=== PATIENT | male | born 1995 | race Caucasian/White ===

== ENCOUNTER → 2016-05-15 | Outpatient (CLI) | payer OTHER ==
--- NOTE | 2016-05-15 13:15 | DIAGNOSTIC IMAGING REPORT ---
CT SCAN OF THE ABDOMEN AND PELVIS WITHOUT IV CONTRAST CLINICAL HISTORY: Hematuria. COMPARISON STUDY: No priors. TECHNIQUE: CT scan of the abdomen and pelvis is performed from the lung bases to the proximal femora. Images are reviewed in the axial, sagittal, and coronal planes. IV contrast was not administered for this examination. Automated dose control exposure was utilized. CT DOSE: 942.00 mGycm FINDINGS: Lung bases: The heart is normal in size and without pericardial effusion. The lung bases are clear. Liver: The unenhanced liver is top normal in size measuring 18 cm in length. The liver demonstrates diffusely diminished attenuation consistent with hepatic steatosis. Fatty sparing is seen adjacent to the gallbladder fossa. There is no intrahepatic biliary ductal dilatation. Gallbladder: Unremarkable. Spleen: Normal in size and attenuation. Pancreas: Unremarkable. Adrenal glands: Unremarkable. Kidneys: The unenhanced kidneys are normal in size and without hydronephrosis. There are 2 mm and 8 mm nonobstructing calculi in the lower pole of the right kidney. There are 2 nonobstructing left renal calculi measuring up to 3 mm. There is no evidence of contour deforming renal mass lesion. Abdominal vasculature: The abdominal aorta is normal in course and caliber. Bowel: The small bowel and colon are normal in course and caliber. The appendix is not identified and reported surgically absent. Peritoneum: There is no intraperitoneal free air or abdominal ascites. Lymphadenopathy: None. Pelvic viscera: The bladder, prostate, and seminal vesicles are normal as visualized. Skeletal structures: No lytic or blastic lesions are seen. A bone island is incidentally noted in the right sacral ala. IMPRESSION: 1. There are bilateral nonobstructing renal calculi as above. 2. No ureteral calculus or hydronephrosis is seen. 3. Hepatomegaly and hepatic steatosis. 4. Additional findings as above. Electronically signed by: Justen Tellez M.D. 05/15/2016 1:14 PM Dictated Date/Time: 05/15/2016 1:09 PM
== END | disposition home or self-care (01) ==
LOC: C.CTS 12:54
PROVIDERS: ATTEND Pediatrics
DX: R31.29 Other microscopic hematuria (principal); N20.0 Calculus of kidney; R16.0 Hepatomegaly, not elsewhere classified; K76.0 Fatty (change of) liver, not elsewhere classified

== ENCOUNTER 2017-12-06 06:23 | Emergency (ER) | payer OTHER ==
[~2017-12-06] VITALS: Ht 175.3 cm; Wt 84.1 kg
[2017-12-06 06:27] VITALS: TEMP 36.5; Ht 175.3 cm; Wt 84.1 kg
[2017-12-06] MEDS ORDERED: KETOROLAC TROMETHAMINE 30 MG/ML VIAL IV STA (06:37)
[2017-12-06] MEDS ORDERED: SODIUM CHLORIDE 0.9% 1000ML 1,000 ML IV STA (06:37)
[2017-12-06 06:48] LABS: BASO % 0.4 %; BASO ABS # 0.05 K/uL (0-0.2); EOS % 2.7 %; EOS ABS # 0.37 K/uL (0-0.5); HEMATOCRIT 45.9 % (42-52); IG# 0.03 K/uL (0.00-0.02); LYMPH % 32.5 %; LYMPH ABS # 4.43 K/uL (1.2-3.4); MEAN CELL VOLUME 83.9 fL (80-100); MEAN CORPUSCULAR HEMOGLOBIN 29.3 pg (25-34); MEAN CORPUSCULAR HGB CONC 34.9 g/dl (32-36); MEAN PLATELET VOLUME 10.4 fL (7.4-10.4); MONO % 7.6 %; MONO ABS # 1.03 K/uL (0.11-0.59); NEUT % 56.6 %; NEUT ABS # 7.72 K/uL (1.4-6.5); PLATELET COUNT 349 K/uL (130-400); RED CELL DISTRIBUTION WIDTH CV 13.4 % (11.5-14.5); RED CELL DISTRIBUTION WIDTH SD 41.3 fL (36.4-46.3); WHITE BLOOD COUNT 13.63 K/uL (4.8-10.8)
[2017-12-06 07:05] LABS: CALCIUM 8.8 mg/dl (8.5-10.1); CREATININE 1.1 mg/dl (0.60-1.40); POTASSIUM 3.6 mmol/L (3.5-5.1); TOTAL PROTEIN 8.1 gm/dl (6.4-8.2)
--- NOTE | 2017-12-06 07:30 | DIAGNOSTIC IMAGING REPORT ---
ABD/PELVIS WITHOUT FOR STONE HISTORY: 22 years-old Male flank pain acute left-sided flank pain COMPARISON: CT abdomen and pelvis 05/15/2016 TECHNIQUE: Multiple axial CT images of the abdomen and pelvis were obtained without the use of IV contrast. A dose lowering technique was used consistent with the principals of BARAK. FINDINGS: Imaged lung bases appear clear and are unremarkable. There is no pneumatosis or pneumoperitoneum identified. Imaged inferior cardiac chambers are unremarkable. Hepatomegaly with hepatic steatosis. No intrahepatic biliary ductal dilation. Mildly contracted gallbladder. Spleen, pancreas and adrenal glands are unremarkable. 4 mm nonobstructing calculus about the interpolar left kidney. Ill-defined increased density about an inferior pole calyx of the right measures up to 9 mm with additional ill-defined increased density seen about the interpolar collecting system on image 162 series 3. Moderate right-sided hydroureteronephrosis with right-sided ureteral stent appearing to be in satisfactory positioning. There is an 8 x 5 x 11 mm calculus of the distal right ureter seen on image 369 series 3. This is present approximately 2.5 cm proximal to the ureterovesicular junction. Reactive perinephric and periureteral inflammatory stranding. Mild urothelial thickening about the renal pelvis and UPJ on the right. Bladder and prostate are unremarkable. Aorta and IVC are within normal limits. Mildly prominent likely reactive periaortic lymph nodes measure up to 6 mm in short axis. No bowel obstruction or focal bowel wall thickening. Terminal ileum appears unremarkable. Surgically absent appendix. Soft tissues are within normal limits. The bones appear intact. IMPRESSION: 1. Moderate right-sided hydroureteronephrosis secondary to an 8 x 5 x 11 mm calculus of the distal right ureter, 2.5 cm proximal to the ureterovesicular junction. Satisfactory positioning of the right ureteral stent. 2. Ill-defined areas of increased density about the collecting system on the right is indeterminate and may reflect blood products. Correlate with urinalysis. 3. Hepatomegaly with hepatic steatosis. 4. Nonobstructing left nephrolithiasis. 5. Prior appendectomy. The above report was generated using voice recognition software. It may contain grammatical, syntax or spelling errors. Electronically signed by: Daryl Singletary M.D. 12/06/2017 7:29 AM Dictated Date/Time: 12/06/2017 7:17 AM
[2017-12-06] MEDS ORDERED: ONDANSETRON INJ 2 MG/ML 2 ML VIAL IV STA (08:07)
--- NOTE | 2017-12-06 08:14 | EMERGENCY ROOM VISIT NOTE ---
History Report prepared by Didieribsophia: Cathleen Mauricio Under the Supervision of: Dr. Lan Zaman D.O. First contact with patient: 06:31 Chief Complaint: KIDNEY STONE Stated Complaint: PAIN IN RIGH KIDNEY.CONSTANT BLOOD,STENT PLACED 2W History of Present Illness The patient is a 22 year old male who presents to the Emergency Room with complaints of constant R kidney pain beginning this morning. He reports he has blood in his urine and is dizzy. The patient had a stent placed 2 weeks ago for a 10 mm kidney stone. He states the stent is still in place, and his stone was not removed due to a kidney infection. The patient reports he was given antibiotics which he is unsure the name of, and is looking for a urologist in the area as his stent was placed in [place]. The patient denies any fevers or nausea. Source of History: patient Onset: this morning Position: other (R kidney) Quality: other (kidney pain) Timing: constant Associated Symptoms: + urinary symptoms (blood in urine), No fevers, No nausea Note: Associated symptom: dizziness Review of Systems See HPI for pertinent positives & negatives. A total of 10 systems reviewed and were otherwise negative. Past Medical & Surgical Medical Problems: (1) Kidney stone Family History No pertinent family history stated. Social History Smoking Status: Never Smoker Occupation Status: [employer] student Current/Historical Medications No Active Prescriptions or Reported Meds Allergies Coded Allergies: No Known Allergies (Unverified , 12/06/17) Physical Exam Vital Signs Date Time Temp Pulse Resp B/P (MAP) Pulse Ox O2 Delivery O2 Flow Rate FiO2 12/06/17 06:27 36.5 88 18 142/103 95 Room Air Physical Exam CONSTITUTIONAL/VITAL SIGNS: Reviewed / noted above. GENERAL: Non-toxic in appearance. INTEGUMENTARY: Warm, dry, and [place]. HEAD: Normocephalic. EYES: without scleral icterus or trauma. ENT/OROPHARYNX: clear and moist. LYMPHADENOPATHY/NECK: Is supple without lymphadenopathy or meningismus. RESPIRATORY: Lungs clear and equal. CARDIOVASCULAR: Regular rate and rhythm. GI/ABDOMEN: Soft and nontender. No organomegaly or pulsatile mass. No rebound or guarding. Normal bowel sounds. EXTREMITIES: Warm and well perfused. BACK: No CVA tenderness. NEUROLOGICAL: Intact without focal deficits. PSYCHIATRIC: normal affect. MUSCULOSKELETAL: Normally developed with good muscle tone. Medical Decision & Procedures ER Provider Diagnostic Interpretation: Radiology results as stated below per my review and radiologist interpretation: ABD/PELVIS WITHOUT FOR STONE HISTORY: 22 years-old Male flank pain acute left-sided flank pain COMPARISON: CT abdomen and pelvis 05/15/2016 TECHNIQUE: Multiple axial CT images of the abdomen and pelvis were obtained without the use of IV contrast. A dose lowering technique was used consistent with the principals of BARAK. FINDINGS: Imaged lung bases appear clear and are unremarkable. There is no pneumatosis or pneumoperitoneum identified. Imaged inferior cardiac chambers are unremarkable. Hepatomegaly with hepatic steatosis. No intrahepatic biliary ductal dilation. Mildly contracted gallbladder. Spleen, pancreas and adrenal glands are unremarkable. 4 mm nonobstructing calculus about the interpolar left kidney. Ill-defined increased density about an inferior pole calyx of the right measures up to 9 mm with additional ill-defined increased density seen about the interpolar collecting system on image 162 series 3. Moderate right-sided hydroureteronephrosis with right-sided ureteral stent appearing to be in satisfactory positioning. There is an 8 x 5 x 11 mm calculus of the distal right ureter seen on image 369 series 3. This is present approximately 2.5 cm proximal to the ureterovesicular junction. Reactive perinephric and periureteral inflammatory stranding. Mild urothelial thickening about the renal pelvis and UPJ on the right. Bladder and prostate are unremarkable. Aorta and IVC are within normal limits. Mildly prominent likely reactive periaortic lymph nodes measure up to 6 mm in short axis. No bowel obstruction or focal bowel wall thickening. Terminal ileum appears unremarkable. Surgically absent appendix. Soft tissues are within normal limits. The bones appear intact. IMPRESSION: 1. Moderate right-sided hydroureteronephrosis secondary to an 8 x 5 x 11 mm calculus of the distal right ureter, 2.5 cm proximal to the ureterovesicular junction. Satisfactory positioning of the right ureteral stent. 2. Ill-defined areas of increased density about the collecting system on the right is indeterminate and may reflect blood products. Correlate with urinalysis. 3. Hepatomegaly with hepatic steatosis. 4. Nonobstructing left nephrolithiasis. 5. Prior appendectomy. The above report was generated using voice recognition software. It may contain grammatical, syntax or spelling errors. Electronically signed by: Daryl Singletary M.D. 12/06/2017 7:29 AM Dictated Date/Time: 12/06/2017 7:17 AM Laboratory Results 12/06/17 06:40 Red Blood Count 5.47, Mean Corpuscular Volume 83.9, Mean Corpuscular Hemoglobin 29.3, Mean Corpuscular Hemoglobin Concent 34.9, Mean Platelet Volume 10.4, Neutrophils (%) (Auto) 56.6, Lymphocytes (%) (Auto) 32.5, Monocytes (%) (Auto) 7.6, Eosinophils (%) (Auto) 2.7, Basophils (%) (Auto) 0.4, Neutrophils # (Auto) 7.72, Lymphocytes # (Auto) 4.43, Monocytes # (Auto) 1.03, Eosinophils # (Auto) 0.37, Basophils # (Auto) 0.05 12/06/17 06:40 Test 12/06/17 06:40 12/06/17 06:52 White Blood Count 13.63 K/uL (4.8-10.8) Red Blood Count 5.47 M/uL (4.7-6.1) Hemoglobin 16.0 g/dL (14.0-18.0) Hematocrit 45.9 % (42-52) Mean Corpuscular Volume 83.9 fL (80-100) Mean Corpuscular Hemoglobin 29.3 pg (25-34) Mean Corpuscular Hemoglobin Concent 34.9 g/dl (32-36) Platelet Count 349 K/uL (130-400) Mean Platelet Volume 10.4 fL (7.4-10.4) Neutrophils (%) (Auto) 56.6 % Lymphocytes (%) (Auto) 32.5 % Monocytes (%) (Auto) 7.6 % Eosinophils (%) (Auto) 2.7 % Basophils (%) (Auto) 0.4 % Neutrophils # (Auto) 7.72 K/uL (1.4-6.5) Lymphocytes # (Auto) 4.43 K/uL (1.2-3.4) Monocytes # (Auto) 1.03 K/uL (0.11-0.59) Eosinophils # (Auto) 0.37 K/uL (0-0.5) Basophils # (Auto) 0.05 K/uL (0-0.2) RDW Standard Deviation 41.3 fL (36.4-46.3) RDW Coefficient of Variation 13.4 % (11.5-14.5) Immature Granulocyte % (Auto) 0.2 % Immature Granulocyte # (Auto) 0.03 K/uL (0.00-0.02) Anion Gap 10.0 mmol/L (3-11) Est Creatinine Clear Calc Drug Dose 105.4 ml/min Estimated GFR () 109.9 Estimated GFR (Non- 94.8 BUN/Creatinine Ratio 12.3 (10-20) Calcium Level 8.8 mg/dl (8.5-10.1) Total Bilirubin 1.0 mg/dl (0.2-1) Direct Bilirubin 0.2 mg/dl (0-0.2) Aspartate Amino Transf (AST/SGOT) 23 U/L (15-37) Alanine Aminotransferase (ALT/SGPT) 44 U/L (12-78) Alkaline Phosphatase 53 U/L (45-117) Total Protein 8.1 gm/dl (6.4-8.2) Albumin 4.0 gm/dl (3.4-5.0) Lipase 162 U/L (73-393) Urine Color RED Urine Appearance CLOUDY (CLEAR) Urine pH 6.5 (4.5-7.5) Urine Specific [place] 1.025 (1.000-1.030) Urine Protein 2+ (NEG) Urine Glucose (UA) NEG (NEG) Urine Ketones NEG (NEG) Urine Occult Blood 3+ (NEG) Urine Nitrite NEG (NEG) Urine Bilirubin NEG (NEG) Urine Urobilinogen NEG (NEG) Urine Leukocyte Esterase SMALL (NEG) Urine RBC >30 /hpf (0-4) Urine WBC >30 /hpf (0-5) Urine Epithelial Cells 5-10 /lpf (0-5) Urine Bacteria NEG (NEG) Urine Mucus PRESENT (NONE PRSENT) Laboratory results as stated above per my review. Medications Administered Medications (Trade) Dose Ordered Sig/Beata Route Start Time Stop Time Status Last Admin Dose Admin Sodium Chloride 1,000 ml @ 999 mls/hr Q1H1M STAT IV 12/06/17 06:37 12/06/17 07:37 DC 12/06/17 06:52 999 MLS/HR Ketorolac Tromethamine (Toradol Inj) 30 mg NOW STAT IV 12/06/17 06:37 8/26/18 06:41 DC 12/06/17 06:52 30 MG ED Course 0635: Previous medical records were reviewed. The patient was evaluated in room A10. A complete history and physical examination was performed. 0637: Ordered Toradol Inj 30 mg IV, Sodium Chloride 1000 ml @ 999 mls/hr IV 0807: Ordered Zofran Inj 4 mg IV 0808: Discussed the patient's case with Dr. Wagner, urologist. He agrees the patient is ready for discharge. 0810: On reevaluation, the patient is feeling better. I discussed the results and findings with the patient. He verbalized agreement of the treatment plan. The patient was discharged home. Medical Decision Differential considered: pancreatitis, hepatitis, or acute cholecystitis, AAA, UTI, pyelonephritis, kidney stones, appendicitis, diverticulitis, shingles, bowel obstruction mesenteric ischemia, intussusception, hernia, testicular torsion. This is a 22-year-old male who presents to the ED with a chief complaint of right sided flank pain as well as some hematuria. The patient states that the symptoms started this morning. He does have history of a 10 mm stone and had a stent placed in his right ureter about 2 weeks ago in [place]. He denies any fever, nausea vomiting. He denies other symptoms. His physical exam was normal. His initial blood pressure was slightly elevated. This is likely related to pain. His white blood cell count was 13. Urine did not show obvious infection. There was some blood. Complete metabolic panel was unremarkable. CT scan reveals a large stone 2.5 cm from the UVJ with some hydroureteronephrosis as well as stent. There is no evidence of urinary tract infection at this time. The patient was reassessed after treatment. He was feeling better. He was treated with IV fluids and IV Toradol. I spoke with Dr. Wagner who recommends the patient can follow up on with their group as scheduled. Medication Reconcilliation Current Medication List: was personally reviewed by me Blood Pressure Screening Patient's blood pressure: Elevated blood pressure Blood pressure disposition: Elevated BP felt to be situational Consults Time Called: 804 Consulting Physician: Dr. Wagner, urologist Returned Call: [phone] Discussed the patient's case with Dr. Wagner, urologist. He agrees the patient is ready for discharge. Impression Primary Impression: Renal colic Additional Impression: S/P ureteral stent placement Scribe Attestation The scribe's documentation has been prepared under my direction and personally reviewed by me in its entirety. I confirm that the note above accurately reflects all work, treatment, procedures, and medical decision making performed by me. Departure Information Dispostion Home / Self-Care Prescriptions No Active Prescriptions or Reported Meds Referrals [facility] (PCP) Russ Wagner MD Forms HOME CARE DOCUMENTATION FORM, IMPORTANT VISIT INFORMATION Patient Instructions My [facility] Additional Instructions Follow-up with the [facility] urologic group as scheduled this . Take ibuprofen or your prescribed pain medication as needed for pain. Problem Qualifiers
[2017-12-06 08:19] VITALS: BP 130/85; PULSE 82; O2SAT 99
== END 2017-12-06 08:30 | disposition home or self-care (01) ==
LOC: C.EDB 06:25 → C.EDA 08:30
DX: N23 Unspecified renal colic (principal); Z98.890 Other specified postprocedural states

== ENCOUNTER 2017-12-08 03:56 | Emergency (ER) | payer OTHER ==
[~2017-12-08] VITALS: Ht 175.3 cm; Wt 87.0 kg
[2017-12-08 04:03] VITALS: TEMP 36.6; Ht 175.3 cm; Wt 87.0 kg
[2017-12-08] MEDS ORDERED: SODIUM CHLORIDE 0.9% 1000ML 1,000 ML IV STA (04:24)
[2017-12-08] MEDS ORDERED: MoRPHine SULFATE 4 MG/ML 1 ML CARP\\VIAL IV STA (04:24)
[2017-12-08] MEDS ORDERED: ONDANSETRON INJ 2 MG/ML 2 ML VIAL IV STA (04:24)
[2017-12-08 04:54] LABS: BASO % 0.4 %; BASO ABS # 0.04 K/uL (0-0.2); EOS % 3.1 %; EOS ABS # 0.33 K/uL (0-0.5); HEMATOCRIT 42.9 % (42-52); HEMOGLOBIN 14.6 g/dL (14.0-18.0); IG# 0.03 K/uL (0.00-0.02); LYMPH % 36.6 %; LYMPH ABS # 3.86 K/uL (1.2-3.4); MEAN CELL VOLUME 83.3 fL (80-100); MEAN CORPUSCULAR HEMOGLOBIN 28.3 pg (25-34); MEAN PLATELET VOLUME 10.6 fL (7.4-10.4); MONO ABS # 0.84 K/uL (0.11-0.59); NEUT % 51.6 %; NEUT ABS # 5.44 K/uL (1.4-6.5); PLATELET COUNT 361 K/uL (130-400); RED CELL DISTRIBUTION WIDTH CV 13.3 % (11.5-14.5); RED CELL DISTRIBUTION WIDTH SD 40.2 fL (36.4-46.3); WHITE BLOOD COUNT 10.54 K/uL (4.8-10.8)
[2017-12-08 05:11] LABS: CALCIUM 8.6 mg/dl (8.5-10.1); CREATININE 1.17 mg/dl (0.60-1.40); POTASSIUM 3.6 mmol/L (3.5-5.1)
[2017-12-08] MEDS ORDERED: OXYC-90 PO (06:42)
[2017-12-08] MEDS ORDERED: ONDA4TAB10 SL (06:42)
[2017-12-08] MEDS ORDERED: TAMS0.4C38 PO (06:43)
--- NOTE | 2017-12-08 06:44 | EMERGENCY ROOM VISIT NOTE ---
History First contact with patient: 04:14 Chief Complaint: KIDNEY STONE Stated Complaint: 8MM KIDNEY STONE,PAIN IN GROIN,STENT IN PLACE History of Present Illness The patient is a 22 year old male who presents to the Emergency Room via private vehicle with complaints of "8 mm stone, pain in groin, stent in place". The patient notes that 2 weeks ago he was in [place], had an abrupt onset of pain and was seen in the emergency department and was found to have a stone. He notes that he had a stent placed. He notes that he was to follow-up with urology this coming week. He states that it is for this . He was seen here in the emergency department a few days ago he notes and there was persistence of the 8 mm stone. No fevers or chills. Review of Systems A complete 10-point Review of Systems was discussed with the patient, with pertinent positives and negatives listed in the History of Present Illness. All remaining Review of Systems questions can be considered negative unless otherwise specified. Past Medical/Surgical History Medical Problems: (1) Kidney stone Social History Smoking Status: Never Smoker Occupation Status: [employer] student Current/Historical Medications Scheduled Ondasetron Odt (Zofran Odt), 4 MG SL Q6H Tamsulosin Hcl (Flomax), 0.4 MG PO DAILY Scheduled PRN Oxycodone Ir (Roxicodone Ir), 1 TAB PO Q4H PRN for Pain Physical Exam Vital Signs Date Time Temp Pulse Resp B/P (MAP) Pulse Ox O2 Delivery O2 Flow Rate FiO2 12/08/17 06:52 86 18 132/91 98 12/08/17 04:46 67 18 123/106 98 Room Air 12/08/17 04:03 36.6 75 18 167/99 100 Room Air Physical Exam VITAL SIGNS - Vital signs and nursing notes were reviewed. Stable. GENERAL - 22-year-old male appearing his stated age who is in no acute distress. Communicates well with provider and answers questions appropriately. SKIN - Without rashes. HEAD - NC/AT. EYES - Sclera anicteric. EARS - No deformities of external structures noted on gross examination bilaterally. NOSE - Midline and without cyanosis. No epistaxis or purulent drainage noted. MOUTH/OROPHARYNX - Without perioral cyanosis. NECK - Neck with FROM. Supple to palpation. No lymphadenopathy noted. No nuchal rigidity. LUNGS - Chest wall symmetric without accessory muscle use, intercostals retractions, or central cyanosis. Normal vesicular breath sounds CTA B/L. No wheezes, rales, or rhonchi appreciated. CARDIAC - RRR with S1/S2. No murmur, rubs, or gallops appreciated. ABDOMEN - Abdominal contour normal without pulsations or visible masses. BS normoactive all four quadrants. No tenderness, palpable masses, hepatosplenomegaly, or ascites noted. EXTREMITIES - No clubbing or peripheral cyanosis. No pretibial edema present. +5 /5 strength noted in UE/LE bilaterally. NEUROLOGIC - Cranial nerves II through XII grossly intact. Sensory intact to light touch throughout. PSYCH - A&O, and cooperates fully with examiner. Pt is very pleasant and interacts well with examiner. Medical Decision & Procedures ER Provider Diagnostic Interpretation: KUB: Per my interpretation persistence of the right distal ureteral stone. US RENAL: COMPARISON: CT 12/06/17 FINDINGS: There is a right-sided ureteral stent with mild hydronephrosis multiple calcifications demonstrated largest measuring 1.1 cm. Left kidney is unremarkable. IMPRESSION: Right-sided ureteral stent identified in good position. Persistent hydronephrosis and renal calculi corresponding to findings seen on CT Radiologist: Vaughn Reyna MD Study ready at 05:26 and initial results transmitted at 06:16 Laboratory Results 12/08/17 04:38 Red Blood Count 5.15, Mean Corpuscular Volume 83.3, Mean Corpuscular Hemoglobin 28.3, Mean Corpuscular Hemoglobin Concent 34.0, Mean Platelet Volume 10.6, Neutrophils (%) (Auto) 51.6, Lymphocytes (%) (Auto) 36.6, Monocytes (%) (Auto) 8.0, Eosinophils (%) (Auto) 3.1, Basophils (%) (Auto) 0.4, Neutrophils # (Auto) 5.44, Lymphocytes # (Auto) 3.86, Monocytes # (Auto) 0.84, Eosinophils # (Auto) 0.33, Basophils # (Auto) 0.04 12/08/17 04:38 Test 12/08/17 04:38 12/08/17 04:40 White Blood Count 10.54 K/uL (4.8-10.8) Red Blood Count 5.15 M/uL (4.7-6.1) Hemoglobin 14.6 g/dL (14.0-18.0) Hematocrit 42.9 % (42-52) Mean Corpuscular Volume 83.3 fL (80-100) Mean Corpuscular Hemoglobin 28.3 pg (25-34) Mean Corpuscular Hemoglobin Concent 34.0 g/dl (32-36) Platelet Count 361 K/uL (130-400) Mean Platelet Volume 10.6 fL (7.4-10.4) Neutrophils (%) (Auto) 51.6 % Lymphocytes (%) (Auto) 36.6 % Monocytes (%) (Auto) 8.0 % Eosinophils (%) (Auto) 3.1 % Basophils (%) (Auto) 0.4 % Neutrophils # (Auto) 5.44 K/uL (1.4-6.5) Lymphocytes # (Auto) 3.86 K/uL (1.2-3.4) Monocytes # (Auto) 0.84 K/uL (0.11-0.59) Eosinophils # (Auto) 0.33 K/uL (0-0.5) Basophils # (Auto) 0.04 K/uL (0-0.2) RDW Standard Deviation 40.2 fL (36.4-46.3) RDW Coefficient of Variation 13.3 % (11.5-14.5) Immature Granulocyte % (Auto) 0.3 % Immature Granulocyte # (Auto) 0.03 K/uL (0.00-0.02) Anion Gap 12.0 mmol/L (3-11) Est Creatinine Clear Calc Drug Dose 108.2 ml/min Estimated GFR () 102.0 Estimated GFR (Non- 88.0 BUN/Creatinine Ratio 12.1 (10-20) Calcium Level 8.6 mg/dl (8.5-10.1) Urine Color RED Urine Appearance CLOUDY (CLEAR) Urine pH 6.0 (4.5-7.5) Urine Specific Prim 1.027 (1.000-1.030) Urine Protein 3+ (NEG) Urine Glucose (UA) NEG (NEG) Urine Ketones NEG (NEG) Urine Occult Blood 3+ (NEG) Urine Nitrite NEG (NEG) Urine Bilirubin NEG (NEG) Urine Urobilinogen NEG (NEG) Urine Leukocyte Esterase SMALL (NEG) Urine WBC (Auto) >30 /hpf (0-5) Urine RBC (Auto) >30 /hpf (0-4) Urine Hyaline Casts (Auto) 0 /lpf (0-5) Urine Epithelial Cells (Auto) >30 /lpf (0-5) Urine Bacteria (Auto) 1+ (NEG) Urine Renal Epithelial Cells /lpf (0-5) Urine Crystals CALCIUM OXALATE (NONE Urine Pathogenic Casts /lpf (0) Urine Mucus PRESENT (NONE PRSENT) Urine Yeast (Auto) (NONE PRSENT) Medications Administered Medications (Trade) Dose Ordered Sig/Beata Route Start Time Stop Time Status Last Admin Dose Admin Sodium Chloride 1,000 ml @ 999 mls/hr Q1H1M STAT IV 12/08/17 04:24 12/08/17 05:24 DC 12/08/17 04:48 999 MLS/HR Morphine Sulfate (MoRPHine SULFATE INJ) 4 mg NOW STAT IV 12/08/17 04:24 12/08/17 04:25 DC 12/08/17 04:49 4 MG Ondansetron HCl (Zofran Inj) 4 mg NOW STAT IV 12/08/17 04:24 12/08/17 04:26 DC 12/08/17 04:47 4 MG Medical Decision Patient was seen and evaluated as above in room B 10. Review was performed of nursing notes and vital signs. After obtaining a thorough history and physical examination the above work up was performed. He presents to us today with what appears to be renal colic. He is nontoxic on exam. Vital signs stable. He is afebrile. CBC reveals no concerning leukocytosis. No anemia. Metabolic panel reveals no evidence of electrolyte abnormality. Kidney function reveals no evidence of failure. Urinalysis is not indicative at this time I believe infection but there is culture pending. He has no signs of UTI. He appears stable for outpatient management. I did refill his prescription of pain medication. It appears that he is not taking this at home. I also refilled his Flomax and provided him Zofran. He is to follow-up with urology this as indicated. He is to return with worsening. The patient was educated upon management, educated upon todays findings/results, educated upon symptoms in which to return, had questions answered prior to discharge, and was discharged home in good condition. Case was discussed with the attending physician. In the evaluation and treatment of this patient the following differential diagnoses were entertained: UTI, renal colic, among others. Impression Primary Impression: Renal colic Departure Information Dispostion Home / Self-Care Condition GOOD Prescriptions Tamsulosin Hcl (FLOMAX) 0.4 Mg Cap 0.4 MG PO DAILY for 7 Days, #7 CAP Prov: Carl Sorto PA-C 12/08/17 Ondasetron Odt (ZOFRAN ODT) 4 Mg Tab 4 MG SL Q6H for Nausea, #12 TAB Prov: Carl Sorto PA-C 12/08/17 Oxycodone Ir (Roxicodone Ir) 5 Mg Tab 1 TAB PO Q4H Y for Pain, #15 TAB For Initial Treatment Prov: Carl Sorto PA-C 12/08/17 [facility] (PCP) Patient Instructions [facility] Additional Instructions You have been treated in the Emergency Department today for a Kidney Stone. You have received pain medicine in the emergency department which impairs your ability to operate a vehicle. It is illegal for you to drive after receiving these medicines. You have been prescribed Oxy IR to be used for pain control. This is a narcotic medication. You cannot drive or consume alcohol while on this medicine. This medicine should only be used for pain that cannot be controlled with over-the- counter pain medicines. You have been prescribed Zofran to be used for any nausea or vomiting. Take as prescribed. You have been prescribed Flomax 0.4 mg to be taken ONCE daily. This medicine has been prescribed as it can help relax the smooth muscles of the urinary tract increasing transit time of the kidney stone. For pain control, you can use the following [id number] medicines (if >12 yo): - Regular strength (325mg/tab) Tylenol (acetaminophen) 2 tabs every 4-6 hours as needed. Do not exceed 12 tablets in a 24 hour period. Avoid taking more than 3 grams (3000 mg) of Tylenol per day. This includes any other sources of acetaminophen you may take on a regular basis. - Regular strength (200 mg/tab) Advil (ibuprofen) 1-2 tabs every 4-6 hours as needed. Do not exceed a dose of 3200 mg per day. Please keep your follow-up with urology. Return to the Emergency Department if your symptoms persist despite the treatment plan outlined above or if you develop the following symptoms: intractable pain, fever, chills, or large amounts of blood in your urine.
[2017-12-08 06:52] VITALS: BP 132/91; PULSE 86; O2SAT 98
--- NOTE | 2017-12-08 06:56 | DIAGNOSTIC IMAGING REPORT ---
(LUCI/BLAD)RETROPERITON COMP HISTORY: 22 years-old Male R flank pain acute right-sided flank pain COMPARISON: CT abdomen and pelvis 12/06/2017 and also 05/15/2016 TECHNIQUE: Multiple real-time sonographic images of the kidneys and bladder were obtained assessing grayscale appearance and color flow FINDINGS: The right kidney measures 11.3 x 4.9 x 4.9 cm. Mild right-sided hydronephrosis redemonstrated with right ureteral stent in place. 1.1 cm nonshadowing echogenicity is noted about the inferior pole right kidney. No shadowing right-sided renal calculi identified. Additional nonshadowing echogenicities measuring up to 5 mm are noted about the inferior pole. Left kidney measures 11.6 x 6.2 x 4.9 cm and is unremarkable without hydronephrosis. The previously noted nonobstructing left renal calculus is not definitively seen. Bladder is partially decompressed. Left ureteral jet noted. IMPRESSION: 1. Persistent mild right-sided hydronephrosis with right ureteral stent in place. 2. Nonobstructing right nephrolithiasis. 3. Unremarkable sonographic appearance of the left kidney and bladder. The above report was generated using voice recognition software. It may contain grammatical, syntax or spelling errors. Electronically signed by: Daryl Singletary M.D. 12/08/2017 6:55 AM Dictated Date/Time: 12/08/2017 6:50 AM
--- NOTE | 2017-12-08 07:10 | DIAGNOSTIC IMAGING REPORT ---
KUB CLINICAL HISTORY: R flank pain COMPARISON STUDY: CT 12/06/2017 FINDINGS: Placement of a right ureteral stent. Stent is in good position. There is a 1 cm calculus involving the distal right ureter. This is several centimeters proximal to the right ureterovesical junction. No additional calcifications are identified. Nonobstructive bowel pattern. IMPRESSION: 1 cm distal right ureteral calculus. Right ureteral stent in good position. The above report was generated using voice recognition software. It may contain grammatical, syntax or spelling errors. Electronically signed by: Dong Joshi M.D. 12/08/2017 7:09 AM Dictated Date/Time: 12/08/2017 7:07 AM
[2017-12-11] MEDS ORDERED: OXYC-90 PO (12:17)
== END 2017-12-08 06:53 | disposition home or self-care (01) ==
LOC: C.EDB 03:57
DX: N23 Unspecified renal colic (principal)